=== PATIENT | female | born 1940 | race Caucasian/White ===

== ENCOUNTER 2018-03-05 07:30 | Day surgery (SDC) | payer MEDICARE, BC ==
[~2018-03-05 07:30] MED LIST: Lidocaine 1% PF 2 ML SDV INJECT SCH
--- NOTE | 2018-03-05 08:01 | PCM.PREANE ---
Preanesthetic Assessment - Anesthesia/Transfusion/Family Hx Anesthesia History: Prior Anesthesia Without Reaction Family History of Anesthesia Reaction: No Transfusion History: No Prior Transfusion(s) - Review of Systems General: No Symptoms Pulmonary: No Symptoms Cardiovascular: No Symptoms Gastrointestinal: No Symptoms Neurological: No Symptoms Other: Reports: None - Physical Assessment NPO Status Date: 03/04/18 NPO Status Time: 00:00 Pulse: 61 O2 Sat by Pulse Oximetry: 94 Respiratory Rate: 16 Blood Pressure: 160/64 Temperature: 36.5 C Height: 1.68 m Weight: 73.936 kg ASA Class: 2 Mental Status: Alert & Oriented x3 Airway Class: Mallampati = 2 Dentition: Reports: Normal Dentition Thyro-Mental Finger Breadths: 3 Mouth Opening Finger Breadths: 3 ROM/Head Extension: Full Lungs: Clear to Auscultation, Normal Respiratory Effort Cardiovascular: Regular Rate, Regular Rhythm - Allergies Allergies/Adverse Reactions: Allergies Allergy/AdvReac Type Severity Reaction Status Date / Time No Known Allergies Allergy Verified 03/04/18 13:06 - Blood Blood Available: No Product(s) Available: None - Anesthesia Plan Pre-Op Medication Ordered: None - Acknowledgements Anesthesia Type Planned: MAC Pt an Appropriate Candidate for the Planned Anesthesia: Yes Alternatives and Risks of Anesthesia Discussed w Pt/Guardian: Yes Pt/Guardian Understands and Agrees with Anesthesia Plan: Yes PreAnesthesia Questionnaire Endocrine/Metabolic History: Reports: Hypothyroidism - HOME MEDS Home Medications: Home Meds Aspirin [Adult Aspirin] 81 mg PO DAILY 03/04/18 [History] Doxycycline [Vibramycin] 100 mg PO BID 03/04/18 [History] Levothyroxine [Synthroid] 100 mcg PO DAILY 03/04/18 [History] Moxifloxacin [Vigamox 0.5% Ophth Soln] 1 drop EYEBOTH ASDIRECTED 03/04/18 [ History] - CURRENT (IN HOUSE) MEDS Current Meds: Current Medications Brimonidine Tartrate (Alphagan 0.2% Ophth Soln) 0 ml EYELF ASDIRECTED JOELLE Stop: 03/05/18 18:00 Cefuroxime Sodium (Zinacef) 0 mg EYELF ASDIRECTED JOELLE Stop: 03/05/18 18:00 Lidocaine HCl (Xylocaine-Mpf 1%) 0 ml INJECT ASDIRECTED JOELLE Stop: 03/05/18 18:00 Phenylephrine HCl (Lucho-Synephrine 2.5% Ophth Soln) 0 ml EYELF ASDIRECTED JOELLE Stop: 03/05/18 18:00 Pilocarpine HCl (Pilocar 4% Ophth Soln) 0 ml EYELF ASDIRECTED JOELLE Stop: 03/05/18 18:00 Polymyxin/Trimethoprim Sulfate (Polytrim Ophth Soln) 0 ml EYELF ASDIRECTED JOELLE Stop: 03/05/18 18:00 Tetracaine HCl (Tetracaine 0.5% Steri-Unit Irish) 0 ml EYELF ASDIRECTED JOELLE Stop: 03/05/18 18:00 Tropicamide (Mydriacyl 1% Ophth Soln) 0 ml EYELF ASDIRECTED JOELLE Stop: 03/05/18 18:00
[2018-03-05] MEDS: Polymyxin B/Trimethoprim 10 ML Bottle EYELF SCH ×4 (08:14→09:49)
[2018-03-05] MEDS: Brimonidine 0.2% Ophth Soln 5 ML Bottle EYELF SCH ×3 (08:19→09:49)
[2018-03-05] MEDS: Phenylephrine 2.5% Ophth Soln 2 ML Bot EYELF SCH ×5 (08:26→09:31)
[2018-03-05] MEDS: Tropicamide 1% Ophth Soln 15 ML Bottle EYELF SCH ×4 (08:31→09:10)
[2018-03-05] MEDS: Tetracaine HCl/PF 0.5% 4 ML Bottle EYELF SCH ×2 (09:22→09:37)
[2018-03-05] MEDS: Cefuroxime 10 MG/ML SYRINGE EYELF SCH ×2 (09:47→09:48)
[2018-03-05] MEDS: Pilocarpine 4% Ophth Soln 15 ML Bot EYELF SCH ×2 (09:48→09:49)
--- NOTE | 2018-03-05 09:54 | PCM48HPAN ---
Post Anesthesia Note - EVALUATION WITHIN 48HRS OF ANESTHETIC Vital Signs in Normal Range: Yes Patient Participated in Evaluation: Yes Respiratory Function Stable: Yes Airway Patent: Yes Cardiovascular Function Stable: Yes Hydration Status Stable: Yes Pain Control Satisfactory: Yes Nausea and Vomiting Control Satisfactory: Yes Pulse Rate: 61 Resp Rate: 16 Temperature: 36.5 C Blood Pressure: 160/64 - COMMENTS/OBSERVATIONS Free Text/Narrative:: no anesthesia complications noted
== END 2018-03-05 10:00 | disposition home or self-care (01) ==
LOC: JD.SDS 07:30
PROVIDERS: ATTEND Ophthalmology
DX: H25.812 Combined forms of age-related cataract, left eye (principal); E03.9 Hypothyroidism, unspecified; Z79.82 Long term (current) use of aspirin; Z79.899 Other long term (current) drug therapy; Z98.41 Cataract extraction status, right eye; Z96.1 Presence of intraocular lens
CPT/HCPCS: 66984; C1780; J0697; A9270-GY; J2001

== ENCOUNTER → 2022-03-02 | Day surgery (SDC) | payer MEDICARE, BC ==
[2022-03-02] MEDS: Brimonidine 0.2% Ophth Soln 5 ML Bottle EYELF SCH ×2 (16:50→17:48)
[2022-03-02] MEDS: Phenylephrine 2.5% Ophth Soln 2 ML Bot EYELF SCH ×3 (16:55→17:20)
[2022-03-02] MEDS: Tropicamide 1% Ophth Soln 15 ML Bottle EYELF SCH ×3 (17:00→17:30)
== END ==
LOC: JD.SDS 16:52
PROVIDERS: ATTEND Ophthalmology
DX: H26.493 Other secondary cataract, bilateral (principal); E03.9 Hypothyroidism, unspecified; Z90.49 Acquired absence of other specified parts of digestive tract; Z96.1 Presence of intraocular lens; Z98.890 Other specified postprocedural states; Z90.710 Acquired absence of both cervix and uterus